=== PATIENT | female | born 1940 | race Caucasian/White ===

== ENCOUNTER 2018-10-10 13:48 | Emergency (ER) | payer OTHER, MEDICAID ==
[~2018-10-10] VITALS: Ht 162.6 cm; Wt 86.2 kg
--- NOTE | 2018-10-10 13:54 | NUR ---
ED Nurse Note: PT LATOYA FROM [facility] DUE TO LEFT FLANK PAINEXTENDS TO HER LEFT GROIN STARTED 10 MINS AGO. NO INJURY. PT STATES HX OF BLOOD CLOTS ON HER LEG. PT IS AAO X4, NONAMBULATORY WITH NON LABORED BREATHING.
--- NOTE | 2018-10-10 14:04 | Emergency Room Report ---
History of Present Illness General Chief Complaint: Pain Source: Patient Present Illness HPI Patient is a 77-year-old female sent in by assisted living after increased left Sided lower abdominal pain. patient had been having increased pain to her left lower extremity for approximately 2 days. Patient reports having intermittent episodes of sharp pain to the left lower abdomen. She reports having prior history of deep venous thrombosis as well as CVA with right-sided weakness. Patient is wheelchair-bound. She reports taking Xarelto. Patient recently been started on antibiotics for a right lower extremity ulcer. She denies taking any diuretics. She reports having normal urination and denies any fever. Pain is intermittent in nature.Patient reports having recently been started on Bactrim. She had prior history of COPD as well as DVT and pulmonary embolism Allergies: Coded Allergies: No Known Allergies (Unverified , 10/10/18) Patient History Past Medical History: CVA/TIA Reviewed Nursing Documentation: PMH: Agreed; PSxH: Agreed Nursing Documentation-PMH Past Medical History: No History, Except For Review of Systems All Other Systems: negative except mentioned in HPI Physical Exam Vital Signs Date Time Temp Pulse Resp B/P (MAP) Pulse Ox O2 Delivery O2 Flow Rate FiO2 10/10/18 13:44 96.8 76 16 148/76 (100) 100 Room Air General Appearance: alert, obese, Chronically Ill Eyes: bilateral eye PERRL ENT: normal pharynx Neck: limited range of motion Respiratory: lungs clear Cardiovascular #1: normal peripheral pulses, edema - 3+ Gastrointestinal: tenderness - left lower extremity swelling, tenderness to left lower abdomen Neurologic: normal inspection, alert, motor weakness - right lower extremity Psychiatric: normal inspection Skin: other - ulceration to right lower extremity, erythema Medical Decision Making Diagnostic Impression: Primary Impression: Abdominal pain Additional Impressions: Diverticulitis large intestine Hx of deep venous thrombosis ER Course Patient presented for abdominal pain. Differential diagnoses included ischemic bowel, appendicitis, perforated viscus, abdominal aortic aneurysm, inferior myocardial infarction, viral gastroenteritis among others.Because of complexity of patient's case laboratory testing and imaging studies were ordered. Patient is noted to have prior history of COPD as well as deep venous thrombosis to her left lower extremity. Bedside ultrasound showed no evidence of DVT. CT imaging of the abdomen pelvis read by radiology showed multiple chronic findings in addition to possible Diverticulitis and diverticulosis. Patient is noted to have significant pain and was markedly tender with movement. Patient was given IV Zosyn. She was also noted to have an ovarian mass to the left ovary. Patient was discussed with physician from [facility] for transfer [facility]. Patient appears to be stable for transfer. Labs Test 10/10/18 14:15 10/10/18 14:37 White Blood Count 8.4 K/UL (4.8-10.8) Red Blood Count 4.39 M/UL (4.20-5.40) Hemoglobin 10.4 G/DL (12.0-16.0) Hematocrit 36.2 % (37.0-47.0) Mean Corpuscular Volume 83 FL (80-99) Mean Corpuscular Hemoglobin 23.8 PG (27.0-31.0) Mean Corpuscular Hemoglobin Concent 28.8 G/DL (32.0-36.0) Red Cell Distribution Width 27.6 % (11.6-14.8) Platelet Count 533 K/UL (150-450) Mean Platelet Volume 5.5 FL (6.5-10.1) Neutrophils (%) (Auto) 61.5 % (45.0-75.0) Lymphocytes (%) (Auto) 12.6 % (20.0-45.0) Monocytes (%) (Auto) 9.3 % (1.0-10.0) Eosinophils (%) (Auto) 14.7 % (0.0-3.0) Basophils (%) (Auto) 1.9 % (0.0-2.0) Prothrombin Time 13.2 SEC (9.30-11.50) Prothromb Time International Ratio 1.3 (0.9-1.1) Activated Partial Thromboplast Time 36 SEC (23-33) Sodium Level 141 MMOL/L (136-145) Potassium Level 4.2 MMOL/L (3.5-5.1) Chloride Level 104 MMOL/L (98-107) Carbon Dioxide Level 28 MMOL/L (21-32) Anion Gap 9 mmol/L (5-15) Blood Urea Nitrogen 13 mg/dL (7-18) Creatinine 1.2 MG/DL (0.55-1.30) Estimat Glomerular Filtration Rate mL/min (>60) Glucose Level 119 MG/DL (74-106) Lactic Acid Level 2.10 mmol/L (0.4-2.0) Calcium Level 9.1 MG/DL (8.5-10.1) Total Bilirubin 0.1 MG/DL (0.2-1.0) Aspartate Amino Transf (AST/SGOT) 21 U/L (15-37) Alanine Aminotransferase (ALT/SGPT) 24 U/L (12-78) Alkaline Phosphatase 79 U/L (46-116) Total Creatine Kinase 94 U/L (26-308) Creatine Kinase MB 2.0 NG/ML (0.0-3.6) Creatine Kinase MB Relative Index 2.1 Troponin I 0.042 ng/mL (0.000-0.056) Total Protein 7.5 G/DL (6.4-8.2) Albumin 3.2 G/DL (3.4-5.0) Globulin 4.3 g/dL Albumin/Globulin Ratio 0.7 (1.0-2.7) Lipase 116 U/L (73-393) Urine Color Yellow Urine Appearance Clear Urine pH 5 (4.5-8.0) Urine Specific [place] 1.025 (1.005-1.035) Urine Protein 1+ (NEGATIVE) Urine Glucose (UA) Negative (NEGATIVE) Urine Ketones Negative (NEGATIVE) Urine Blood 1+ (NEGATIVE) Urine Nitrite Negative (NEGATIVE) Urine Bilirubin 1+ (NEGATIVE) Urine Ictotest Negative (NEGATIVE) Urine Urobilinogen 1 MG/DL (0.0-1.0) Urine Leukocyte Esterase Negative (NEGATIVE) Urine RBC 0-2 /HPF (0 - 2) Urine WBC 0-2 /HPF (0 - 2) Urine Squamous Epithelial Cells Occasional /LPF Urine Bacteria Few /HPF (NONE) Last Vital Signs Date Time Temp Pulse Resp B/P (MAP) Pulse Ox O2 Delivery O2 Flow Rate FiO2 10/10/18 13:44 96.8 76 16 148/76 (100) 100 Room Air Status: improved Disposition: XFER S[facility]-TRM HOSP Condition: Serious Jagdeep Benitez MD October 10, 2018 14:04
[2018-10-10 14:09] VITALS: BP 132/104
[2018-10-10] MEDS ORDERED: Isovue-300 100ml vial INJ PRN (14:15)
[2018-10-10] MEDS ORDERED: AMLODIPINE BES2.5 MG ORAL (14:24)
[2018-10-10] MEDS ORDERED: SENNA8.6 M2 PO (14:24)
[2018-10-10] MEDS ORDERED: XARELTO20 MG ORAL (14:24)
[2018-10-10] MEDS ORDERED: CALCIUM500 M3 PO (14:24)
--- NOTE | 2018-10-10 14:24 | NUR ---
ED Nurse Note: PT.'S CAREGIVER CONTACT INFO
[2018-10-10 14:43] LABS: BASOPHILS % (AUTO) 1.9 % (0.0-2.0); EOSINOPHILS % (AUTO) 14.7 % (0.0-3.0); HEMATOCRIT 36.2 % (37.0-47.0); HEMOGLOBIN 10.4 G/DL (12.0-16.0); LYMPHOCYTES % (AUTO) 12.6 % (20.0-45.0); MEAN CORPUSCULAR VOLUME 83 FL (80-99); MONOCYTES % (AUTO) 9.3 % (1.0-10.0); NEUTROPHILS % (AUTO) 61.5 % (45.0-75.0); PLATELET COUNT 533 K/UL (150-450); RED BLOOD COUNT 4.39 M/UL (4.20-5.40); RED CELL DISTRIBUTION WIDTH 27.6 % (11.6-14.8); WHITE BLOOD COUNT 8.4 K/UL (4.8-10.8)
[2018-10-10] MEDS ORDERED: Morphine Sulfate 2mg/ml Inj(IV/IM USE ONLY) IVP ONE (14:45)
[2018-10-10 14:54] LABS: ANION GAP 9 mmol/L (5-15); BLOOD UREA NITROGEN 13 mg/dL (7-18); CALCIUM 9.1 MG/DL (8.5-10.1); CARBON DIOXIDE 28 MMOL/L (21-32); CHLORIDE 104 MMOL/L (98-107); CREATININE 1.2 MG/DL (0.55-1.30); POTASSIUM 4.2 MMOL/L (3.5-5.1); SODIUM 141 MMOL/L (136-145)
[2018-10-10 14:56] LABS: INR 1.3 (0.9-1.1)
--- NOTE | 2018-10-10 15:00 | NUR ---
ED Nurse Note: US STAFF AT THE BED SIDE.
[2018-10-10 15:06] LABS: ALANINE AMINOTRANSFERASE 24 U/L (12-78); ALBUMIN 3.2 G/DL (3.4-5.0); ALBUMIN/GLOBULIN RATIO 0.7 (1.0-2.7); ALKALINE PHOSPHATASE 79 U/L (46-116); ASPARTATE AMINO TRANSFERASE 21 U/L (15-37); BILIRUBIN,TOTAL 0.1 MG/DL (0.2-1.0); CREATINE KINASE 94 U/L (26-308)
[2018-10-10 15:19] LABS: APPEARANCE,URINE CLEAR; BILIRUBIN, URINE 1+ (NEGATIVE); GLUCOSE, URINE (UA) NEGATIVE (NEGATIVE); KETONES,URINE NEGATIVE (NEGATIVE); LEUKOCYTE ESTERASE ,URINE NEGATIVE (NEGATIVE); NITRITE,URINE NEGATIVE (NEGATIVE); PH,URINE 5 (4.5-8.0); PROTEIN,URINE 1+ (NEGATIVE); UROBILINOGEN,URINE 1 MG/DL (0.0-1.0)
[2018-10-10 15:28] LABS: COLOR,URINE YELLOW
--- NOTE | 2018-10-10 15:35 | NUR ---
ED Nurse Note: REPEAT LACTIC ACID SPECIMEN SENT.
--- NOTE | 2018-10-10 15:39 | Diagnostic Imaging Report ---
Indication: Left leg pain Technique: Grayscale and duplex images of the left lower extremity veins Comparison: none Findings: Grayscale duplex images demonstrate no evidence of intraluminal thrombus. Normal phasic Doppler waveforms. Normal phasicity, normal augmentation response. No evidence of valvular insufficiency. Normal compressibility Impression: Negative for left lower extremity deep venous thrombosis
--- NOTE | 2018-10-10 15:40 | NUR ---
ED Nurse Note: PT TAKEN TO CT VIA CHRISTIN.
[2018-10-10 16:09] VITALS: BP 145/70
[2018-10-10] MEDS ORDERED: Piperacillin/Tazobactam 3.375 GM in NS 110 ML IVPB ONE (16:45)
--- NOTE | 2018-10-10 16:49 | Diagnostic Imaging Report ---
Clinical Indication: Left-sided lower abdominal pain Technique: No oral contrast utilized, per emergency room physician request IV administration nonionic contrast. Venous phase spiral acquisition obtained through the abdomen and pelvis. Multiplanar reconstructions were generated. Total dose length product 1017.23 mGycm. CTDIvol(s) 19.51 mGy. Dose reduction achieved using automated exposure control Comparison: none Findings: Lack of enteric contrast limits assessment of the GI tract. There is extensive colonic diverticulosis. There is mild diffuse wall thickening of the sigmoid colon. There is very slight increased attenuation of the pericolonic fat at the junction of the distal descending and proximal sigmoid colon. No extraluminal gas or discrete fluid collection demonstrated. The appendix is normal. No small bowel distention. No free or loculated intraperitoneal gas or fluid is evident. Distal esophagus, stomach, duodenum are unremarkable. Liver is mildly hypoattenuating, may indicate mild steatosis. The gallbladder, bile ducts are unremarkable. The pancreas is atrophic and fatty replaced. The spleen, adrenals are unremarkable. The kidneys demonstrate multiple parapelvic cysts bilaterally. There is a retroaortic left renal vein incidentally noted. Somewhat prominent but not frankly enlarged periaortic and pericaval nodes are demonstrated. There is an inferior vena cava filter in infrarenal inferior vena cava. There is a right adnexal region mass which measures 6 x 3 cm. This demonstrates slightly higher than fluid attenuation. The uterus and left ovary are unremarkable. The included lung bases demonstrate mild compressive atelectatic changes. The bones demonstrate degenerative spondylosis changes. There is mild lumbar scoliotic deformity. Impression: Colonic diverticulosis. Slight apparent inflammation of the pericolonic fat of the junction of the distal descending and proximal sigmoid colon are indicate early uncomplicated acute diverticulitis Sigmoid wall thickening,. Could indicate circular muscle hypertrophy or could be a secondary sign of acute diverticulitis Possible mild hepatic steatosis Bilateral renal parapelvic cysts Incidental findings as noted, including atrophic fatty replaced pancreas, retroaortic left renal vein, inferior vena cava filter, basilar atelectasis, degenerative spondylosis and lumbar scoliosis Findings discussed by phone with Dr. Benitez in the emergency room at the time of interpretation The CT scanner at [facility] is accredited by the [employer] and the scans are performed using protocols designed to limit radiation exposure to as low as reasonably achievable to attain images of sufficient resolution adequate for diagnostic evaluation.
--- NOTE | 2018-10-10 16:56 | Diagnostic Imaging Report ---
Indication: Shortness of breath Technique: One view of the chest Comparison: none Findings: Heart is enlarged. The aorta is tortuous and calcified. Lungs and pleural spaces are clear. Impression: Cardiomegaly. No definite acute process
[2018-10-10 18:00] VITALS: BP 120/66
[2018-10-10] MEDS ORDERED: Hydromorphone 0.5mg/0.5ml inj IVP ONE ×2 (18:00→20:45)
--- NOTE | 2018-10-10 18:29 | NUR ---
ED Nurse Note: PT RESTING ON BED AND MORE RELAXED AT THIS TIME AFTER 2ND PAIN MED. VSS.
--- NOTE | 2018-10-10 19:06 | NUR ---
HAND-OFF: Report given to YOKO AKHTAR.
[2018-10-10 19:49] VITALS: BP 126/72
--- NOTE | 2018-10-10 20:07 | NUR ---
ER Nurse Note: Pt voided with no difficulty; pt cleaned and pt resting. Pt VSS, expressed pain, ERMD notifed. All orders completed per ERMD orders. All safety measures met; Will continue to montior.
[2018-10-10 21:10] VITALS: BP 126/72
--- NOTE | 2018-10-10 21:24 | NUR ---
ER Nurse Note: Called report twice; spoke with Clerk Danae in 4E and nurse is busy and said to call back in 10 mins both times.
--- NOTE | 2018-10-10 21:30 | NUR ---
ER Nurse Note: Report given to HERMILO Haynes for continuity of care. Pt a&ox4, VSS, no signs of distress. All orders completed per ERMD orders. Pt denies pain; pain meds given prior to transfer. All belongings taken with pt.
== END 2018-10-10 21:30 | disposition other institution (70) ==
LOC: EDBD 13:48 → EMR 15:00
DX: K57.32 Diverticulitis of large intestine without perforation or abscess without bleeding (principal); Z86.718 Personal history of other venous thrombosis and embolism
CPT/HCPCS: 36415; 71045; 74177; 80053; 81003; 82550; 82553; 83605; 83690; 84484; 85025; 85610; 85730; 86850; 86900; 86901; 87040; 87081; 93005; 93971; 96365; 96374; 96375; 96376; 99285; J1170; J2270; J2543; Q9967

== ENCOUNTER 2020-03-13 14:10 | Emergency (ER) | payer MEDICARE, MEDICAID ==
[~2020-03-13] VITALS: Ht 160 cm; Wt 104.3 kg
[~2020-03-13 14:10] MED LIST: AMLODIPINE BES2.5 MG ORAL; CALCIUM500 M3 PO; SENNA8.6 M2 PO; XARELTO20 MG ORAL
--- NOTE | 2020-03-13 14:14 | NUR ---
ED Nurse Note: Pt brought in by ambulance from home d/t right lower back pain x a few days. Pt denies trauma or injury and also denies pain at the moment. Respirations even and unlabored on room air. Vitals stable as documented. A+Ox4, speaking in complete sentences.
[2020-03-13 14:15] VITALS: BP 142/62
--- NOTE | 2020-03-13 14:22 | Emergency Room Report ---
History of Present Illness General Chief Complaint: Back Pain-No Injury Source: Medical Record Present Illness HPI 79-year-old female with history of CVA on Xarelto, chronic constipation on senna, here with right flank pain. Patient says that for the past 2 days she has been experiencing worsening dull right flank pain and believes that she has also had a decrease in urine output. Also had a small bowel movement yesterday and has not had a bowel movement yet today, which is abnormal for her as she says that she normally has a bowel movement every morning. Pain is dull in nature, located in the right flank and right lower quadrant, does not otherwise radiate. Has not taken any medications for the pain. No fevers, chills, chest pain, palpitations, shortness of breath, other back pain, other abdominal pain, vomiting, diarrhea, dysuria, hematuria. Has had subjective nausea but is not vomited. Bowel movement yesterday was of normal caliber. Patient says that she has been passing gas. Has a history of "some surgery" in her left lower quadrant. She is unaware of what the surgery was. Allergies: Coded Allergies: No Known Allergies (Unverified , 10/10/18) COVID-19 Screening Contact w/high risk pt: No Experienced COVID-19 symptoms?: No COVID-19 Testing performed ASSOCIATE PROGRAMMER ANALYST: No Nursing Documentation-[facility] Past Medical History: No History, Except For Hx Hypertension: Yes Review of Systems All Other Systems: negative except mentioned in HPI Physical Exam Vital Signs Date Time Temp Pulse Resp B/P (MAP) Pulse Ox O2 Delivery O2 Flow Rate FiO2 03/13/20 14:04 97.9 73 18 147/48 (81) 03/13/20 14:15 97 Room Air Sp02 EP Interpretation: reviewed, normal General Appearance: no apparent distress, alert, non-toxic Head: normocephalic, atraumatic Eyes: bilateral eye normal inspection, bilateral eye PERRL ENT: hearing grossly normal, normal pharynx, no angioedema, normal voice Neck: full range of motion, supple/symm/no masses Respiratory: chest non-tender, lungs clear, normal breath sounds, speaking full sentences Cardiovascular #1: regular rate, rhythm, no edema Cardiovascular #2: 2+ carotid (R), 2+ carotid (L), 2+ radial (R), 2+ radial (L), 2+ dorsalis pedis (R), 2+ dorsalis pedis (L) Gastrointestinal: normal bowel sounds, non tender, soft, non-distended, no guarding, no rebound, other - Abdomen soft, nonperitoneal, nontender. Subjective mild tenderness in the right lower quadrant radiating to the right flank, no rebound or guarding. Negative Rovsing sign, negative Beatty sign. Mild right CVA tenderness Rectal: deferred Genitourinary: normal inspection, no CVA tenderness Musculoskeletal: back normal, normal range of motion, gait/station normal, non- tender Neurologic: alert, motor strength/tone normal, oriented x3, sensory intact, responsive, speech normal Psychiatric: judgement/insight normal, memory normal, mood/affect normal, no suicidal/homicidal ideation Lymphatic: no adenopathy Medical Decision Making Diagnostic Impression: Primary Impression: Back pain Additional Impression: Complex ovarian cyst ER Course CT: IMPRESSION: 1. 6.7 cm complex right adnexal cyst. Transvaginal imaging of the pelvis is advised to follow. 2. Mild cardiomegaly. 3. Small hiatal hernia and probable distal esophagitis. 4. Diffuse fatty infiltration of the liver. 5. Gallbladder is unremarkable. 6. Nonspecific stranding about the perinephric spaces bilaterally which requires clinical correlation. 7. Nonobstructing calculus mid pole region of the left kidney. 8. Diverticulosis without diverticulitis. 9. No bowel obstruction. The appendix is unremarkable. 79-year-old female here with atraumatic lower back pain. Patient was hemodynamically stable in the emergency department. She had no red flag warning signs such as urinary or fecal retention or incontinence, saddle anesthesia, IV drug use, recent steroid use, recent trauma, midline spinal tenderness. She had normal neurologic examination and otherwise normal physical examination. She had no midline spinal tenderness whatsoever. She was also complained of some very mild right lower quadrant tenderness but had a largely benign physical examination. CT abdomen pelvis did however reveal a complex right adnexal cyst that was suspicious for an ovarian cyst. I informed the patient of this and she says that her primary care physician is well aware of this complex cyst and she says that she has ultrasounds regularly performed every 6 months to monitor it. She has an appointment with her primary care physician this upcoming week. Urinalysis negative for signs of infection, CBC and CMP were normal. Patient was asymptomatic here in the emergency department. She will follow-up with her primary care provider. Told to come back to the emergency department she has any worsening pain, fevers, chills, focal numbness or weakness, hematuria or dysuria. She expressed understanding and was discharged. Laboratory Tests Test 03/13/20 14:40 03/13/20 16:15 White Blood Count 9.6 K/UL (4.8-10.8) Red Blood Count 3.73 M/UL (4.20-5.40) L Hemoglobin 8.5 G/DL (12.0-16.0) L Hematocrit 27.8 % (37.0-47.0) L Mean Corpuscular Volume 74 FL (80-99) L Mean Corpuscular Hemoglobin 22.7 PG (27.0-31.0) L Mean Corpuscular Hemoglobin Concent 30.4 G/DL (32.0-36.0) L Red Cell Distribution Width 17.6 % (11.6-14.8) H Platelet Count 399 K/UL (150-450) Mean Platelet Volume 5.7 FL (6.5-10.1) L Neutrophils (%) (Auto) 75.6 % (45.0-75.0) H Lymphocytes (%) (Auto) 10.9 % (20.0-45.0) L Monocytes (%) (Auto) 6.7 % (1.0-10.0) Eosinophils (%) (Auto) 6.1 % (0.0-3.0) H Basophils (%) (Auto) 0.7 % (0.0-2.0) Sodium Level 139 MMOL/L (136-145) Potassium Level 4.1 MMOL/L (3.5-5.1) Chloride Level 103 MMOL/L (98-107) Carbon Dioxide Level 27 MMOL/L (21-32) Anion Gap 10 mmol/L (5-15) Blood Urea Nitrogen 15 mg/dL (7-18) Creatinine 1.0 MG/DL (0.55-1.30) Estimated Glomerular Filtration Rate 53.2 mL/min (>60) Glucose Level 109 MG/DL (74-106) H Calcium Level 8.7 MG/DL (8.5-10.1) Total Bilirubin 0.2 MG/DL (0.2-1.0) Aspartate Amino Transferase (AST) 20 U/L (15-37) Alanine Aminotransferase (ALT) 12 U/L (12-78) Alkaline Phosphatase 72 U/L (46-116) Total Protein 6.7 G/DL (6.4-8.2) Albumin 3.2 G/DL (3.4-5.0) L Globulin 3.5 g/dL Lipase 65 U/L (73-393) L Urine Color Pale yellow Urine Appearance Clear Urine pH 5 (4.5-8.0) Urine Specific [place] 1.015 (1.005-1.035) Urine Protein Negative (NEGATIVE) Urine Glucose (UA) Negative (NEGATIVE) Urine Ketones Negative (NEGATIVE) Urine Blood 1+ (NEGATIVE) H Urine Nitrite Positive (NEGATIVE) H Urine Bilirubin Negative (NEGATIVE) Urine Urobilinogen Normal MG/DL (0.0-1.0) Urine Leukocyte Esterase Negative (NEGATIVE) Urine RBC 0-2 /HPF (0 - 2) Urine WBC 0-2 /HPF (0 - 2) Urine Squamous Epithelial Cells None /LPF (NONE/OCC) Urine Bacteria Few /HPF (NONE) Last Vital Signs Date Time Temp Pulse Resp B/P (MAP) Pulse Ox O2 Delivery O2 Flow Rate FiO2 03/13/20 14:15 97.5 88 18 142/62 97 Room Air Deonte Neff M.D. Mar 13, 2020 14:22
[2020-03-13] MEDS ORDERED: Omnipaque-300 100ml vial INJ PRN (14:45)
[2020-03-13 15:28] LABS: ANION GAP 10 mmol/L (5-15); BLOOD UREA NITROGEN 15 mg/dL (7-18); CALCIUM 8.7 MG/DL (8.5-10.1); CARBON DIOXIDE 27 MMOL/L (21-32); CHLORIDE 103 MMOL/L (98-107); POTASSIUM 4.1 MMOL/L (3.5-5.1); SODIUM 139 MMOL/L (136-145)
[2020-03-13 15:31] LABS: ALBUMIN 3.2 G/DL (3.4-5.0); ASPARTATE AMINO TRANSFERASE 20 U/L (15-37); BASOPHILS % (AUTO) 0.7 % (0.0-2.0); EOSINOPHILS % (AUTO) 6.1 % (0.0-3.0); HEMATOCRIT 27.8 % (37.0-47.0); HEMOGLOBIN 8.5 G/DL (12.0-16.0); LYMPHOCYTES % (AUTO) 10.9 % (20.0-45.0); MEAN CORPUSCULAR VOLUME 74 FL (80-99); MONOCYTES % (AUTO) 6.7 % (1.0-10.0); NEUTROPHILS % (AUTO) 75.6 % (45.0-75.0); PLATELET COUNT 399 K/UL (150-450); RED BLOOD COUNT 3.73 M/UL (4.20-5.40); RED CELL DISTRIBUTION WIDTH 17.6 % (11.6-14.8); WHITE BLOOD COUNT 9.6 K/UL (4.8-10.8)
[2020-03-13 15:50] LABS: BILIRUBIN,TOTAL 0.2 MG/DL (0.2-1.0)
[2020-03-13 15:51] LABS: ALANINE AMINOTRANSFERASE 12 U/L (12-78); ALKALINE PHOSPHATASE 72 U/L (46-116)
--- NOTE | 2020-03-13 16:29 | Diagnostic Imaging Report ---
EXAM: CT Abdomen and Pelvis With Intravenous Contrast CLINICAL HISTORY: Right flank pain. TECHNIQUE: Axial computed tomography images of the abdomen and pelvis with intravenous contrast. CTDI is 15.80 mGy and DLP is 801.7 mGy-cm. One or more of the following dose reduction techniques were used: automated exposure control, adjustment of the mA and/or kV according to patient size, use of iterative reconstruction technique. COMPARISON: 10/10/2018-CT imaging of the abdomen portion only FINDINGS: Lung bases: Minimal subsegmental atelectasis at the right lung base. Minimal subsegmental atelectasis at the left lung base. Minimal subsegmental atelectasis within the lingular region. Minimal scarring at the right lung base. Heart: Mild cardiomegaly. Mediastinum: Small hiatal hernia and probable distal esophagitis. ABDOMEN: Liver: Diffuse fatty infiltration of the liver is noted. The liver and the spleen enhance uniformly. Gallbladder and bile ducts: Gallbladder is unremarkable. No calcified stones. No ductal dilation. Pancreas: Antibody tail of the pancreas are unremarkable. No ductal dilation. Spleen: See above. Adrenals: 0.8 cm probable right adrenal adenoma, unchanged from the previous study, which requires no follow-up. A 1 cm probable left adrenal abnormal, unchanged from the previous study which requires no follow-up. Kidneys and ureters: Bilateral parapelvic renal cysts are noted, similar to is noted on the previous study which requires no follow-up. Minimal nonspecific stranding about the perinephric spaces. 0.3 cm nonobstructing calculus posterior midpole region of the right kidney. Stomach and bowel: Best seen on coronal image 23 series 8 there is possible mild duodenitis extending to small bowel loops within the left hypogastrium possibly in the basis of mild enteritis. Diverticulosis without diverticulitis. No obstruction. PELVIS: Appendix: Appendix is seen on coronal image 20 and is unremarkable. Moderate quantity of stool throughout the colon. Bladder: The bladder is underdistended. Reproductive: A 6.7 x 4.2 cm complex right adnexal cystic structure presumably arising from the right ovary. Transvaginal imaging is advised for further assessment. ABDOMEN and PELVIS: Intraperitoneal space: Unremarkable. No free air. No significant fluid collection. Bones/joints: Multilevel vacuum disks. Moderate degenerative disc disease. No spondylolysis or spinal listhesis. The sacrum and coccyx are unremarkable. No acute fracture. No dislocation. Soft tissues: Ischiorectal fat is clean. Vasculature: IVC filter is noted in place. Vascular calcifications within the uterus. Flow is demonstrated within the celiac, SMA, the renal arteries, and STEPHANIE. No abdominal aortic aneurysm. Lymph nodes: No pelvic or inguinal lymphadenopathy. Other findings: ASCVD. Elevation of the right hemidiaphragm. IMPRESSION: 1. 6.7 cm complex right adnexal cyst. Transvaginal imaging of the pelvis is advised to follow. 2. Mild cardiomegaly. 3. Small hiatal hernia and probable distal esophagitis. 4. Diffuse fatty infiltration of the liver. 5. Gallbladder is unremarkable. 6. Nonspecific stranding about the perinephric spaces bilaterally which requires clinical correlation. 7. Nonobstructing calculus mid pole region of the left kidney. 8. Diverticulosis without diverticulitis. 9. No bowel obstruction. The appendix is unremarkable.
[2020-03-13 16:30] VITALS: BP 137/73
[2020-03-13 17:17] LABS: APPEARANCE,URINE CLEAR; BILIRUBIN, URINE NEGATIVE (NEGATIVE); COLOR,URINE PALE YELLOW; GLUCOSE, URINE (UA) NEGATIVE (NEGATIVE); KETONES,URINE NEGATIVE (NEGATIVE); LEUKOCYTE ESTERASE ,URINE NEGATIVE (NEGATIVE); NITRITE,URINE POSITIVE (NEGATIVE); PH,URINE 5 (4.5-8.0); PROTEIN,URINE NEGATIVE (NEGATIVE); UROBILINOGEN,URINE NORMAL MG/DL (0.0-1.0)
--- NOTE | 2020-03-13 17:51 | NUR ---
ED Nurse Note: pt reports needing an ambulance to take her home as she is unable to walk. Charge nurse notified
[2020-03-13 18:30] VITALS: BP 146/64
[2020-03-13 19:17] VITALS: BP 141/72
--- NOTE | 2020-03-13 19:17 | NUR ---
ED Nurse Note: Pt cleared by health care Provider for discharge. DC instructions/prescription were given and explained to pt and verbalized understanding of teachings. All medical deviecs such as ID band removed. Pt is AAO x4, ambulatory and left with all personal belongings. Report given to [facility]. Pt discharged safely en route to her home.
== END 2020-03-13 19:17 | disposition home or self-care (01) ==
LOC: EDBD 14:10 → EMR 14:32
DX: N83.201 Unspecified ovarian cyst, right side (principal); I51.7 Cardiomegaly; K44.9 Diaphragmatic hernia without obstruction or gangrene; K76.0 Fatty (change of) liver, not elsewhere classified; N20.0 Calculus of kidney; K57.90 Diverticulosis of intestine, part unspecified, without perforation or abscess without bleeding; Z86.73 Personal history of transient ischemic attack (TIA), and cerebral infarction without residual deficits; Z79.01 Long term (current) use of anticoagulants; Z79.899 Other long term (current) drug therapy
CPT/HCPCS: 36415; 74177; 80053; 81003; 83690; 85025; 99284; Q9965

== ENCOUNTER 2020-04-25 08:44 | Emergency (ER) | payer MEDICARE, MEDICAID ==
[~2020-04-25] VITALS: Ht 160 cm; Wt 90.7 kg
--- NOTE | 2020-04-25 09:01 | NUR ---
ED Nurse Note: Pt arrived to ED via [facility] transport from [facility] d/t fever and cough yesterday. Pt is AOx4, calm and cooperative to care, breathing even and unlabored satting at 94-98% on RA, afebrile on triage, non-ambulatory, non-coughing as of now. Per report, pt was tested covid negative on 04/05. Pt was placed on bed, doors kept closed at all times; hooked to portable monitor.
--- NOTE | 2020-04-25 09:19 | Emergency Room Report ---
History of Present Illness General Chief Complaint: Upper Respiratory Illness Source: Patient Present Illness HPI Disclaimer: Please note that this report is being documented using [employer] technology. This can lead to erroneous entry secondary to incorrect interpretation by the dictating instrument. HPI: 79-year-old female history of chronic DVT and PE, obesity, hypertension, hyperlipidemia, chronic atrial fibrillation on Xarelto presents for evaluation of fever. Patient had a fever 101 degrees yesterday and today. She had a slight cough yesterday but resolved today. She denies chest pain, palpitations, shortness of breath, nausea, vomiting, diarrhea or abdominal pain. She noted nasal congestion and postnasal drip yesterday but appears to be resolving. Denies sore throat. Patient tested negative for COVID-19 on 04/05 and was reswabbed 2 days ago but results are not yet available. Otherwise feels well and has no acute complaints at this time. PMH: Chronic DVT, chronic PE, obesity, hypertension, atrial fibrillation PSH: IVC filter Allergies: Reviewed Social Hx: Reviewed Allergies: Coded Allergies: No Known Allergies (Unverified , 10/10/18) COVID-19 Screening Contact w/high risk pt: No Experienced COVID-19 symptoms?: Yes COVID-19 Testing performed [employer]: Yes COVID-19 Screening: Negative COVID-19 COVID-19 Testing Source: 04/05 Patient History Last Menstrual Period: na Nursing Documentation-PMH Past Medical History: No History, Except For Hx Hypertension: Yes Review of Systems All Other Systems: negative except mentioned in HPI Physical Exam Vital Signs Date Time Temp Pulse Resp B/P (MAP) Pulse Ox O2 Delivery O2 Flow Rate FiO2 04/25/20 08:57 99.1 60 18 142/66 (91) 95 Room Air General: Awake and alert, no acute distress HEENT: NC/AT. EOMI. Cardiovascular: Regular rate and rhythm Resp: Normal work of breathing. No cough, wheezing or crackles appreciated Abdomen: Abdomen is soft, nondistended. Nontender. Obese abdomen Skin: Intact. Compression bandage over right lower extremity MSK: Normal tone and bulk. Moving all extremities. No obvious deformity. Neuro: Awake and alert. Mentating appropriately. Medical Decision Making Diagnostic Impression: Primary Impression: COVID-19 ER Course This is an 79-year-old female presenting for evaluation of fever from her nursing facility. [facility] concerned over COVID-19 infection. Patient's cough is now resolved and arrives saturating 95% on room air without respiratory difficulty. EKG and labs largely unremarkable. Chest x-ray does not show focal consolidation. She has tested positive for COVID-19 according to rapid swab test. No oxygen requirement. She is breathing comfortably room air 97%. No white count. Baseline anemia. Chemistry unremarkable. Troponin negative. She is stable for outpatient monitoring and discharge. Discussed with [facility] where she resides. They are able to set up an isolation bed for her. She will be monitored there and return with new or worsening symptoms. Laboratory Tests Test 04/25/20 09:35 White Blood Count 5.5 K/UL (4.8-10.8) Red Blood Count 3.53 M/UL (4.20-5.40) L Hemoglobin 7.9 G/DL (12.0-16.0) L Hematocrit 24.7 % (37.0-47.0) L Mean Corpuscular Volume 70 FL (80-99) L Mean Corpuscular Hemoglobin 22.3 PG (27.0-31.0) L Mean Corpuscular Hemoglobin Concent 31.7 G/DL (32.0-36.0) L Red Cell Distribution Width 17.7 % (11.6-14.8) H Platelet Count 347 K/UL (150-450) Mean Platelet Volume 6.0 FL (6.5-10.1) L Neutrophils (%) (Auto) % (45.0-75.0) Lymphocytes (%) (Auto) % (20.0-45.0) Monocytes (%) (Auto) % (1.0-10.0) Eosinophils (%) (Auto) % (0.0-3.0) Basophils (%) (Auto) % (0.0-2.0) Differential Total Cells Counted 100 Neutrophils % (Manual) 73 % (45-75) Lymphocytes % (Manual) 11 % (20-45) L Monocytes % (Manual) 16 % (1-10) H Eosinophils % (Manual) 0 % (0-3) Basophils % (Manual) 0 % (0-2) Band Neutrophils 0 % (0-8) Nucleated Red Blood Cells 1 /100 WBC Platelet Estimate Adequate Platelet Morphology Normal Hypochromasia 2+ Anisocytosis 2+ Microcytosis 1+ Sodium Level 139 MMOL/L (136-145) Potassium Level 3.5 MMOL/L (3.5-5.1) Chloride Level 104 MMOL/L (98-107) Carbon Dioxide Level 28 MMOL/L (21-32) Anion Gap 7 mmol/L (5-15) Blood Urea Nitrogen 10 mg/dL (7-18) Creatinine 0.9 MG/DL (0.55-1.30) Estimated Glomerular Filtration Rate > 60 mL/min (>60) Glucose Level 99 MG/DL (74-106) Calcium Level 8.2 MG/DL (8.5-10.1) L Total Bilirubin 0.2 MG/DL (0.2-1.0) Aspartate Amino Transferase (AST) 20 U/L (15-37) Alanine Aminotransferase (ALT) 23 U/L (12-78) Alkaline Phosphatase 85 U/L (46-116) Troponin I 0.045 ng/mL (0.000-0.056) Pro-B-Type Natriuretic Peptide Pending Total Protein 7.3 G/DL (6.4-8.2) Albumin 3.1 G/DL (3.4-5.0) L Globulin 4.2 g/dL Albumin/Globulin Ratio 0.7 (1.0-2.7) L Microbiology Date/Time Source Procedure Growth Status 04/25/20 09:35 Nasopharynx SARS-CoV-2 RdRp Gene Assay - Final Complete EKG Diagnostic Results Troponin ordered: Yes When was troponin ordered?: Apr 25, 2020 EKG Time: 09:26 Rate: normal Rhythm: NSR ST Segments: no acute changes Other Impression Sinus rhythm with first-degree AV block, right bundle branch block pattern. Rhythm Strip Diag. Results Rhythm Strip Time: 09:26 EP Interpretation: yes Rate: 70s Rhythm: NSR, no PVC's, no ectopy Chest X-Ray Diagnostic Results Chest X-Ray Diagnostic Results : Chest X-Ray Ordered: Yes # of Views/Limited/Complete: 1 View Indication: Shortness of Breath EP Interpretation: Yes Interpretation: no consolidation, no effusion, no pneumothorax, no acute cardiopulmonary disease Impression: No acute disease Electronically Signed by: Electronically signed by Dr. Bola Serrano MD Last Vital Signs Date Time Temp Pulse Resp B/P (MAP) Pulse Ox O2 Delivery O2 Flow Rate FiO2 04/25/20 08:57 99.1 60 18 142/66 (91) 95 Room Air Disposition: SNF Condition: Stable Referrals: NON PHYSICIAN (PCP) Bola Serrano MD Apr 25, 2020 09:19
[2020-04-25 09:30] VITALS: BP 142/66
--- NOTE | 2020-04-25 09:48 | Diagnostic Imaging Report ---
EXAM: XR Chest, 1 View CLINICAL HISTORY: SOB TECHNIQUE: Frontal view of the chest. COMPARISON: No relevant prior studies available. FINDINGS/IMPRESSION: No focal infiltrate. Chronically increased interstitial markings. No pleural effusion or pneumothorax. Cardiomegaly. Calcified aorta. Heavily calcified mitral annulus.
[2020-04-25 09:54] LABS: HEMATOCRIT 24.7 % (37.0-47.0); HEMOGLOBIN 7.9 G/DL (12.0-16.0); MEAN CORPUSCULAR VOLUME 70 FL (80-99); PLATELET COUNT 347 K/UL (150-450); RED BLOOD COUNT 3.53 M/UL (4.20-5.40); RED CELL DISTRIBUTION WIDTH 17.7 % (11.6-14.8); WHITE BLOOD COUNT 5.5 K/UL (4.8-10.8)
--- NOTE | 2020-04-25 10:00 | NUR ---
CALLED DR NAVEEN LOBO @[phone]
[2020-04-25 10:09] LABS: ANION GAP 7 mmol/L (5-15); BLOOD UREA NITROGEN 10 mg/dL (7-18); CALCIUM 8.2 MG/DL (8.5-10.1); CARBON DIOXIDE 28 MMOL/L (21-32); CHLORIDE 104 MMOL/L (98-107); CREATININE 0.9 MG/DL (0.55-1.30); POTASSIUM 3.5 MMOL/L (3.5-5.1); SODIUM 139 MMOL/L (136-145)
[2020-04-25 10:13] LABS: ALANINE AMINOTRANSFERASE 23 U/L (12-78); ALBUMIN 3.1 G/DL (3.4-5.0); ALBUMIN/GLOBULIN RATIO 0.7 (1.0-2.7); ALKALINE PHOSPHATASE 85 U/L (46-116); ASPARTATE AMINO TRANSFERASE 20 U/L (15-37); BILIRUBIN,TOTAL 0.2 MG/DL (0.2-1.0)
--- NOTE | 2020-04-25 12:00 | NUR ---
PAGED DR NAVEEN LOBO [phone]
--- NOTE | 2020-04-25 12:35 | NUR ---
CALLED [facility] AND REPORTED PATIENT IS RETURNING BACK [facility] HAS BEEN CALLED ETA [phone]
[2020-04-25 12:54] VITALS: BP 140/68
--- NOTE | 2020-04-25 12:54 | NUR ---
ER DISCHARGE NOTE: Patient is cleared to be discharged per ERMD, pt is aox4, on room air, with stable vital signs. ambulance personnel was given dc and prescription instructions. pt id band and iv site removed without complications. Pt left ED on a bls transport going back to nursing facility; all belonginsg taken.
== END 2020-04-25 12:54 ==
LOC: EDBD 08:44 → EMR 09:09
DX: U07.1 COVID-19 (principal); E78.5 Hyperlipidemia, unspecified; I48.20 Chronic atrial fibrillation, unspecified; Z79.01 Long term (current) use of anticoagulants; Z86.718 Personal history of other venous thrombosis and embolism; Z86.711 Personal history of pulmonary embolism; E66.9 Obesity, unspecified; Z68.35 Body mass index [BMI] 35.0-35.9, adult
CPT/HCPCS: 36415; 71045; 80053; 83880; 84484; 85007; 85025; 93005; 99284; U0002